=== PATIENT | male | born 2000 | race Caucasian/White ===

== ENCOUNTER 2018-06-06 18:20 | Emergency (ER) | payer SELFPAY ==
[2018-06-06] MEDS ORDERED: FENTANYL CITR 100 MCG/2 ML ONE (19:42)
[2018-06-06] MEDS ORDERED: ONDANSETRON 4 MG/2 ML VIAL ONE (19:43)
[2018-06-06 19:54] LABS: Absolute Lymphocytes (CBC) 0.9 K/uL (0.7-4.9); Absolute Monocytes 1.2 K/uL (0.1-1.3); Absolute Neutrophil 14.3 K/uL (1.8-8.0); Basophils % 0.2 % (0-1.3); Eosinophils % 0.5 % (0-4.4); Hematocrit 46.1 % (39.6-49.0); Lymphocytes % 5.3 % (15.3-44.8); MCH 31.2 pg (27.0-35.0); MCV 91.6 fL (80-100); MPV 8.9 fL (7.6-11.3); Monocytes % 7.1 % (3.3-12.3); RBC Red Blood Cell Count 5.04 M/uL (4.33-5.43)
[2018-06-06 19:57] LABS: Potassium 3.3 mmol/L (3.5-5.1)
[2018-06-06 20:23] LABS: Urine Blood NEGATIVE (NEG); Urine Glucose NEGATIVE (NEG); Urine Protein NEGATIVE (NEG); Urine Specific Gravity <1.005 (1.005-1.030); Urine pH 5.5 (5.0-7.0)
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
[2018-06-06 20:40] LABS: Blood Morphology Comment NOT SEEN (NOT SEEN); Platelet Estimate ADEQ; Urine White Blood Cell Casts OK
[2018-06-06] MEDS ORDERED: HYDROCODONE/APAP 10/325 TAB ONE ×2 (20:48→21:06)
[2018-06-06] MEDS ORDERED: LIDOCAINE 1% MPF 5 ML VIAL ONE (20:50)
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
== END 2018-06-06 21:49 | disposition home or self-care (01) ==
LOC: ER 18:20
PROC: 0JQ10ZZ Repair Face Subcutaneous Tissue and Fascia, Open Approach (ICD-10-PCS; principal; 2018-06-06)
DX: S02.2XXA Fracture of nasal bones, initial encounter for closed fracture (principal); S02.30XA Fracture of orbital floor, unspecified side, initial encounter for closed fracture; S01.111A Laceration without foreign body of right eyelid and periocular area, initial encounter; Y04.2XXA Assault by strike against or bumped into by another person, initial encounter; Y93.89 Activity, other specified; Y92.89 Other specified places as the place of occurrence of the external cause; Z91.02 Food additives allergy status
CPT/HCPCS: 36415; 70450; 70486; 70491; 76377; 80048; 81003; 85025; 96374; 96375; 99285; J2405; J3010; Q9967

== ENCOUNTER 2018-07-24 04:41 | Emergency (ER) | payer SELFPAY ==
[2018-07-24] MEDS ORDERED: DIAZEPAM 5 MG TABLET ONE (05:38)
[2018-07-24] MEDS ORDERED: LEVALBUTEROL 1.25 MG/3 ML NEB ONE (05:40)
--- NOTE | 2018-07-24 06:33 | EDPHYS ---
Physician Documentation [facility] Name: Drake Downey Age: 18 yrs Sex: Male : 2000 Arrival Date: 07/24/2018 Time: 04:45 Bed 8 Private MD: ED Physician Doron Perry HPI: 07/24 05:20 This 18 yrs old Male presents to ER via Ambulatory with complaints of rn Breathing Difficulty. 05:20 The patient has shortness of breath at rest. Onset: The symptoms/episode began/occurred rn just prior to arrival. Duration: The symptoms are intermittent. The patient's shortness of breath is aggravated by nothing, is alleviated by nothing. Severity of symptoms: At their worst the symptoms were moderate in the emergency department the symptoms have improved. The patient has experienced similar episodes in the past. Reports has episodes of breathing difficulty and heart racing, has been going on since last thanksgiving, has had multiple evaluations for it, seen here for it, seen pulmonology and multiple clinic visits. Last recommendation was to get holter monitor but didn't want to pay out of pocket. Reports random episodes, they keep him from working or doing anything. Denies drug use. + smoker. Feels better now without therapy. Told by other doctors could be anxiety. Reports feels congestion, always using vicks, but doesn't take allergy meds, also reports acid reflux but doesn't take anatacids. . Historical: - Allergies: 05:18 Red Dye; jb4 - Home Meds: 05:18 Albuterol Inhl [Active]; Propranolol Oral [Active]; jb4 - PMHx: 05:18 "breathing issues"; jb4 - PSHx: 05:18 None; jb4 - Immunization history:: Adult Immunizations unknown, Flu vaccine is up to date. - Social history:: Smoking status: Patient uses tobacco products, smokes one-half pack cigarettes per day. - Ebola Screening: : No symptoms or risks identified at this time. - Family history:: not pertinent. - Hospitalizations: : No recent hospitalization is reported. ROS: 05:20 Constitutional: Negative for fever, chills, and weight loss, Eyes: Negative for injury, rn pain, redness, and discharge, Neck: Negative for injury, pain, and swelling, Cardiovascular: Negative for chest pain, and edema, Respiratory: Negative for cough, wheezing, and pleuritic chest pain, Abdomen/GI: Negative for abdominal pain, nausea, vomiting, diarrhea, and constipation, MS/Extremity: Negative for injury and deformity, Skin: Negative for injury, rash, and discoloration, Neuro: Negative for headache, weakness, numbness, tingling, and seizure. Exam: 05:20 Constitutional: Thin male, appears anxious, with fine tremors, no acute distress rn Head/Face: Normocephalic, atraumatic. Eyes: Pupils equal round and reactive to light, extra-ocular motions intact. Lids and lashes normal. Conjunctiva and sclera are non-icteric and not injected. Cornea within normal limits. Periorbital areas with no swelling, redness, or edema. ENT: MMM, no stridor, + poor dentition Cardiovascular: Regular rate and rhythm with a normal S1 and S2. No gallops, murmurs, or rubs. Normal PMI, no JVD. No pulse deficits. Respiratory: Lungs have equal breath sounds bilaterally, clear to auscultation and percussion. No rales, rhonchi or wheezes noted. No increased work of breathing, no retractions or nasal flaring. Abdomen/GI: Soft, non-tender, with normal bowel sounds. No distension or tympany. No guarding or rebound. No evidence of tenderness throughout. MS/ Extremity: Pulses equal, no cyanosis. Neurovascular intact. Full, normal range of motion. Equal circumference. Neuro: Awake and alert, GCS 15, oriented to person, place, time, and situation. Cranial nerves II-XII grossly intact. Motor strength 5/5 in all extremities. Sensory grossly intact. Vital Signs: 04:55 BP 148 / 64; Pulse 63; Resp 18; Temp 98.3; Pulse Ox 99% on R/A; Weight 77.11 kg; Height jb4 6 ft. 2 in. (187.96 cm); 06:04 BP 106 / 64; Pulse 65; Resp 18; Pulse Ox 100% on R/A; jb4 06:30 BP 119 / 77; Pulse 76; Resp 16; Pulse Ox 98% on R/A; jb4 04:55 Body Mass Index 21.83 (77.11 kg, 187.96 cm) jb4 MDM: 04:52 Patient medically screened. rn 06:31 Differential diagnosis: Anxiety Reaction Pneumothorax Psychogenic pulmonary edema, rn reactive airway disease. Data reviewed: vital signs, nurses notes, EKG, radiologic studies, plain films, and as a result, I will discharge patient. Counseling: I had a detailed discussion with the patient and/or guardian regarding: the historical points, exam findings, and any diagnostic results supporting the discharge/admit diagnosis, the need for outpatient follow up, to return to the emergency department if symptoms worsen or persist or if there are any questions or concerns that arise at home. Response to treatment: the patient's condition has returned to base line, and as a result, I will discharge patient. Special discussion: I discussed with the patient/guardian in detail that at this point there is no indication for admission to the hospital. It is understood, however, that if the symptoms persist or worsen the patient needs to return immediately for re-evaluation. ED course: Cxr neg, ECG normal. Recommended outpt holter as recommended by others, as well as daily antacid and allergy medication. NOrmal vitals. . 07/24 05:12 Order name: XRAY Chest (1 view) rn 07/24 05:12 Order name: EKG; Complete Time: 05:12 rn 07/24 05:12 Order name: EKG - Nurse/Tech; Complete Time: 05:40 rn Administered Medications: 05:40 Drug: Xopenex 1.25 mg Route: Inhalation; [facility] 06:00 Follow up: Response: No adverse reaction 4 05:40 Drug: Valium 5 mg Route: PO; 4 06:30 Follow up: Response: No adverse reaction [facility] Disposition: 07/24/18 06:33 Discharged to Home. Impression: Palpitations, Shortness of breath. - Condition is Stable. - Discharge Instructions: Allergies, Adult, Holter Monitoring, Palpitations, Shortness of Breath, Heartburn. - Medication Reconciliation Form, Thank You Letter, Antibiotic Education, Prescription Opioid Use form. - Follow up: Private Physician; When: As needed; Reason: Recheck today's complaints, Re-evaluation by your physician. - Problem is an acute exacerbation. - Symptoms have improved. Signatures: Dispatcher [employer] EDDoron Kay MD MD rn Bryson, James, RN RN jb4 Corrections: (The following items were deleted from the chart) 06:59 06:33 07/24/2018 06:33 Discharged to Home. Impression: Palpitations; Shortness of jb4 breath. Condition is Stable. Forms are Medication Reconciliation Form, Thank You Letter, Antibiotic Education, Prescription Opioid Use. Follow up: Private Physician; When: As needed; Reason: Recheck today's complaints, Re-evaluation by your physician. Problem is an acute exacerbation. Symptoms have improved. rn
--- NOTE | 2018-07-24 06:33 | ER ---
Nurse's Notes [facility] Name: Drake Downey Age: 18 yrs Sex: Male : 2000 Arrival Date: 07/24/2018 Time: 04:45 Bed 8 Private MD: Diagnosis: Palpitations;Shortness of breath Presentation: 07/24 05:14 Presenting complaint: Patient states: I was having a hard time breathing, heart was jb4 racing and I was feeling weak. Transition of care: patient was not received from another setting of care. Onset of symptoms was July 24, 2018. Risk Assessment: Do you want to hurt yourself or someone else? Patient reports no desire to harm self or others. Initial Sepsis Screen: Does the patient meet any 2 criteria? No. Patient's initial sepsis screen is negative. Does the patient have a suspected source of infection? No. Patient's initial sepsis screen is negative. Care prior to arrival: None. 05:14 Method Of Arrival: Ambulatory jb4 05:14 Acuity: NATHANAEL 3 jb4 Triage Assessment: 05:18 General: Appears in no apparent distress. uncomfortable, Behavior is calm, cooperative, jb4 appropriate for age. Pain: Denies pain. EENT: No signs and/or symptoms were reported regarding the EENT system. Neuro: Level of Consciousness is awake, alert, obeys commands, Oriented to person, place, time, situation. Cardiovascular: Heart tones S1 S2 present Patient's skin is warm and dry. Rhythm is sinus rhythm. Respiratory: Reports shortness of breath Airway is patent Respiratory effort is even, labored, Respiratory pattern is regular, symmetrical, Breath sounds are clear bilaterally. Onset: The symptoms/episode began/occurred today, the patient has mild shortness of breath. GI: No signs and/or symptoms were reported involving the gastrointestinal system. : No signs and/or symptoms were reported regarding the genitourinary system. Derm: Skin is intact, Skin is pink, warm \\T\\ dry. Musculoskeletal: Circulation, motion, and sensation intact. Historical: - Allergies: 05:18 Red Dye; jb4 - Home Meds: 05:18 Albuterol Inhl [Active]; Propranolol Oral [Active]; jb4 - PMHx: 05:18 "breathing issues"; jb4 - PSHx: 05:18 None; jb4 - Immunization history:: Adult Immunizations unknown, Flu vaccine is up to date. - Social history:: Smoking status: Patient uses tobacco products, smokes one-half pack cigarettes per day. - Ebola Screening: : No symptoms or risks identified at this time. - Family history:: not pertinent. - Hospitalizations: : No recent hospitalization is reported. Screenin:20 Abuse screen: Denies threats or abuse. Nutritional screening: No deficits noted. jb4 Tuberculosis screening: No symptoms or risk factors identified. Fall Risk None identified. Assessment: 05:20 General: See triage assessment.. jb4 06:03 Reassessment: Patient appears in no apparent distress at this time. Patient and/or jb4 family updated on plan of care and expected duration. Pain level reassessed. Patient is alert, oriented x 3, equal unlabored respirations, skin warm/dry/pink. X-ray at the bedside. Vital Signs: 04:55 BP 148 / 64; Pulse 63; Resp 18; Temp 98.3; Pulse Ox 99% on R/A; Weight 77.11 kg; Height jb4 6 ft. 2 in. (187.96 cm); 06:04 BP 106 / 64; Pulse 65; Resp 18; Pulse Ox 100% on R/A; jb4 06:30 BP 119 / 77; Pulse 76; Resp 16; Pulse Ox 98% on R/A; jb4 04:55 Body Mass Index 21.83 (77.11 kg, 187.96 cm) jb4 ED Course: 04:45 Patient arrived in ED. es 04:52 Doron Perry MD is Attending Physician. rn 04:55 Arm band placed on right wrist. jb4 05:14 Neel Astorga, NYDIA is Primary Nurse. jb4 05:17 Triage completed. jb4 05:20 Patient has correct armband on for positive identification. Bed in low position. Call jb4 light in reach. Side rails up X 1. equipment monitor phototypesetting on. Pulse ox on. NIBP on. 06:06 X-ray completed. Portable x-ray completed in exam room. Patient tolerated procedure kw well. 06:07 XRAY Chest (1 view) In Process Unspecified. EDMS 06:30 No provider procedures requiring assistance completed. Patient did not have IV access jb4 during this emergency room visit. Administered Medications: 05:40 Drug: Xopenex 1.25 mg Route: Inhalation; jb4 06:00 Follow up: Response: No adverse reaction jb4 05:40 Drug: Valium 5 mg Route: PO; jb4 06:30 Follow up: Response: No adverse reaction jb4 Outcome: 06:30 Discharged to home ambulatory. jb4 06:30 Condition: stable 06:30 Discharge instructions given to patient, family, Instructed on discharge instructions, follow up and referral plans. Demonstrated understanding of instructions, follow-up care. 06:33 Discharge ordered by . rn 06:59 Patient left the ED. jb4 Signatures: Dispatcher [employer] Yenni Rosas Roman, MD MD rn Whitley, Kimberlee kw Bryson, James, RN RN jb4
--- NOTE | 2018-07-24 08:54 | RAD REPORT ---
EXAM DESCRIPTION: RAD - Chest Single View - 07/24/2018 6:07 am CLINICAL HISTORY: Difficulty breathing, shortness of breath COMPARISON: August 2017 TECHNIQUE: AP portable chest image was obtained [id number] hours . FINDINGS: No peripheral mass, consolidation or failure finding. Interstitial markings are minimally prominent but not clearly different. Heart size is normal. Heart and vasculature are normal. No measu rable pleural effusion and no pneumothorax. No acute bony abnormality seen. No acute aortic findings suspected. IMPRESSION: No acute cardiopulmonary process. No significant interval change.
--- NOTE | 2018-07-24 09:00 | EKG ---
Test Date: 2018-07-24 Test Time: 05:26:01 Portfolio Strategist: LENNY MEASUREMENT RESULTS: Intervals: Rate: 62 NM: 136 QRSD: 96 QT: 396 QTc: 401 [place]: P: 72 NM: 136 QRS: 67 T: 44 INTERPRETIVE STATEMENTS: Normal sinus rhythm Normal ECG Compared to ECG 08/01/2017 03:59:05 No significant changes Electronically Signed On 07-24-18 08:59:26 CDT by Fernando Benoit
== END 2018-07-24 06:59 | disposition home or self-care (01) ==
LOC: ER 04:41
DX: R00.2 Palpitations (principal); F17.210 Nicotine dependence, cigarettes, uncomplicated; Z91.02 Food additives allergy status
CPT/HCPCS: 71045; 93005; 99284

== ENCOUNTER 2025-07-18 16:42 | Emergency (ER) | payer SELFPAY ==
--- OUTSIDE RECORDS SUMMARY | 2025-07-18 16:46 | XMS REPORT | Continuity of Care Document ---
Author Name Unknown Address [address] [facility] [address] [place] [address] [facility] [address] [facility] [address] [place] [address] Care Team Providers Care [place] [facility] Attendant Name Role Phone Irasema Jefferson Primary Care Physician Allergies, Adverse Reactions, Alerts Allergy Name Allergy Type Status Severity Reaction(s) Onset Date Inactive Date Treating Clinician Comments Source [place] - Intraven ous Propensi ty to adverse reaction to drug Active 04-14 00:00: 00 Red Dye Propensi ty to adverse reaction to drug Active 02-21 00:00: 00 Medications Ordered Medication Name Filled Medication Name Start Date Stop Date Current Medication? Ordering Clinician Indication Dosage Frequency Signature (SIG) Comments Components Source omeprazole 40 mg capsule,del ayed release 05-14 00:00: 00 No 1mg amoxicillin 875 mg-potassiu m clavulanate 125 mg tablet 04-21 00:00: 00 No 1mg Dose Unknown 04-21 00:00: 00 No TAKE 1 TABLET BID NEEDED 04-20 00:00: 00 No 600 ketoconazol e 2 % topical cream 04-17 00:00: 00 No 1% escitalopra m 10 mg tablet 04-14 00:00: 00 No 1mg hydroxyzine HCl 25 mg tablet 04-14 00:00: 00 No 12mg omeprazole 20 mg capsule,del ayed release 04-14 00:00: 00 No 1mg Lexapro 20 mg tablet - 00:00: 00 No 15mg propranolol 10 mg tablet 11-02 00:00: 00 No 1mg Lexapro 20 mg tablet 2018-10 00:00: 00 No 15mg propranolol 10 mg tablet 2018-10 00:00: 00 No 1mg propranolol 10 mg tablet 2018-10 00:00: 00 No 1mg Lexapro 20 mg tablet 2018-10 00:00: 00 No 15mg Lexapro 20 mg tablet 2018-10 00:00: 00 No 15mg propranolol 10 mg tablet 2018-10 00:00: 00 No 1mg propranolol 10 mg tablet 2018-10 00:00: 00 No 1mg Lexapro 20 mg tablet 2018-10 0 00:00: 00 No 15mg Lexapro 20 mg tablet 06-14 00:00: 00 No 15mg propranolol 10 mg tablet 06-14 00:00: 00 No 1mg Lexapro 20 mg tablet 7 00:00: 00 No 15mg propranolol 10 mg tablet 04-12 00:00: 00 No 1mg propranolol 10 mg tablet 03-23 00:00: 00 No 1mg Lexapro 20 mg tablet 03-23 00:00: 00 No 15mg propranolol 10 mg tablet 01-25 00:00: 00 No 1mg Lexapro 20 mg tablet 01-25 00:00: 00 No 15mg prednisone 20 mg tablet 01-02 00:00: 00 No 1mg propranolol 10 mg tablet 01-02 00:00: 00 No 1mg Protonix 40 mg tablet,vinicius yed release 01-02 00:00: 00 No 1mg azithromyci n 250 mg tablet 01-02 00:00: 00 No mg promethazin e-DM 6.25 mg-15 mg/5 mL oral syrup 0 402 00:00: 00 No 5mg/5 mL Lexapro 20 mg tablet 0 305 00:00: 00 No 15mg propranolol 10 mg tablet 0 22 00:00: 00 No 1mg Lexapro 20 mg tablet 0 1- 00:00: 00 No 15mg Lexapro 20 mg tablet 2017-10 00:00: 00 No 1mg hydroxyzine HCl 50 mg tablet 2017-10 00:00: 00 No 1mg trazodone 50 mg tablet 2017-10 00:00: 00 No 5mg Lexapro 10 mg tablet 2017-10 00:00: 00 No 1mg hydroxyzine HCl 50 mg tablet 2017-10 00:00: 00 No 1mg trazodone 50 mg tablet 2017-10 00:00: 00 No 1mg Protonix 40 mg tablet,vinicius yed release 2017-10 00:00: 00 No 1mg trazodone 50 mg tablet 2017-10 00:00: 00 No 1mg Lexapro 10 mg tablet 2017-10 00:00: 00 No 1mg hydroxyzine HCl 50 mg tablet 2017-10 00:00: 00 No 1mg Flovent HFA 110 mcg/actuati on aerosol inhaler 06-27 00:00: 00 No 1mcg/ac tuation propranolol 10 mg tablet 06-27 00:00: 00 No 1mg propranolol 10 mg tablet 2016-10 00:00: 00 No 1mg Vital Signs Vital Name Observation Time Observation Value Comments S ource BP Systolic 2022-04-21 19:20:00 BP Diastolic 2022-04-21 19:20:00 Weight Measured 2022-04-21 19:20:00 240.00 pounds Height Measured 2022-04-21 19:20:00 74.00 inches Body Temperature 2022-04-21 19:20:00 Heart Rate 2022-04-21 19:20:00 Respiratory Rate 2022-04-21 19:20:00 BP Systolic 2022-04-17 15:54:00 119 mm[Hg] BP Diastolic 2022-04-17 15:54:00 77 mm[Hg] Weight Measured 2022-04-17 15:54:00 240.80 pounds Height Measured 2022-04-17 15:54:00 74.00 inches Body Temperature 2022-04-17 15:54:00 98.10 degrees Heart Rate 2022-04-17 15:54:00 90.00 /min Respiratory Rate 2022-04-17 15:54:00 BP Systolic 2019-09-28 15:39:00 130 mm[Hg] BP Diastolic 2019-09-28 15:39:00 74 mm[Hg] Weight Measured 2019-09-28 15:39:00 192.60 pounds Height Measured 2019-09-28 15:39:00 74.00 inches Body Temperature 2019-09-28 15:39:00 98.30 degrees Heart Rate 2019-09-28 15:39:00 63.00 /min Respiratory Rate 2019-09-28 15:39:00 BP Systolic 2019-08-21 14:37:00 144 mm[Hg] BP Diastolic 2019-08-21 14:37:00 78 mm[Hg] Weight Measured 2019-08-21 14:37:00 188.00 pounds Height Measured 2019-08-21 14:37:00 74.00 inches Body Temperature 2019-08-21 14:37:00 98.60 degrees Heart Rate 2019-08-21 14:37:00 80.00 /min Respiratory Rate 2019-08-21 14:37:00 BP Systolic 2019-01-23 13:09:00 129 mm[Hg] BP Diastolic 2019-01-23 13:09:00 75 mm[Hg] Weight Measured 2019-01-23 13:09:00 172.80 pounds Height Measured 2019-01-23 13:09:00 74.00 inches Body Temperature 2019-01-23 13:09:00 98.00 degrees Heart Rate 2019-01-23 13:09:00 79.00 /min Respiratory Rate 2019-01-23 13:09:00 18.00 /min BP Systolic 2019-01-02 16:37:00 124 mm[Hg] BP Diastolic 2019-01-02 16:37:00 69 mm[Hg] Weight Measured 2019-01-02 16:37:00 175.60 pounds Height Measured 2019-01-02 16:37:00 74.00 inches Body Temperature 2019-01-02 16:37:00 98.10 degrees Heart Rate 2019-01-02 16:37:00 68.00 /min Respiratory Rate 2019-01-02 16:37:00 18.00 /min BP Systolic 2018-12-05 10:51:00 114 mm[Hg] BP Diastolic 2018-12-05 10:51:00 66 mm[Hg] Weight Measured 2018-12-05 10:51:00 180.00 pounds Height Measured 2018-12-05 10:51:00 74.00 inches Body Temperature 2018-12-05 10:51:00 97.80 degrees Heart Rate 2018-12-05 10:51:00 84.00 /min Respiratory Rate 2018-12-05 10:51:00 Weight Measured 2018-10-12 16:37:00 172.60 pounds Height Measured 2018-10-12 16:37:00 74.00 inches Body Temperature 2018-10-12 16:37:00 98.20 degrees Heart Rate 2018-10-12 16:37:00 63.00 /min Respiratory Rate 2018-10-12 16:37:00 18.00 /min BP Systolic 2018-10-12 16:37:00 115 mm[Hg] BP Diastolic 2018-10-12 16:37:00 65 mm[Hg] BP Systolic 2018-09-12 14:21:00 112 mm[Hg] BP Diastolic 2018-09-12 14:21:00 74 mm[Hg] Weight Measured 2018-09-12 14:21:00 171.60 pounds Height Measured 2018-09-12 14:21:00 74.00 inches Body Temperature 2018-09-12 14:21:00 97.70 degrees Heart Rate 2018-09-12 14:21:00 76.00 /min Respiratory Rate 2018-09-12 14:21:00 17.00 /min BP Systolic 2018-07-27 12:41:00 112 mm[Hg] BP Diastolic 2018-07-27 12:41:00 72 mm[Hg] Weight Measured 2018-07-27 12:41:00 169.00 pounds Height Measured 2018-07-27 12:41:00 74.00 inches Body Temperature 2018-07-27 12:41:00 97.90 degrees Heart Rate 2018-07-27 12:41:00 73.00 /min Respiratory Rate 2018-07-27 12:41:00 18.00 /min BP Systolic 2018-07-24 15:54:00 114 mm[Hg] BP Diastolic 2018-07-24 15:54:00 67 mm[Hg] Weight Measured 2018-07-24 15:54:00 167.40 pounds Height Measured 2018-07-24 15:54:00 74.00 inches Body Temperature 2018-07-24 15:54:00 98.30 degrees Heart Rate 2018-07-24 15:54:00 62.00 /min Respiratory Rate 2018-07-24 15:54:00 Plan of Care Planned Activity Planned Date Details Comments Source Goal Plan of Care Note [code = 31997-0] Goal Plan of Care Note [code = 63003-7] Goal Plan of Care Note [code = 99393-7] Goal Plan of Care Note [code = 07535-1] Goal Plan of Care Note [code = 96109-1] Goal Plan of Care Note [code = 77508-6] Goal Plan of Care Note [code = 00484-5] Goal Plan of Care Note [code = 01193-4] Goal Plan of Care Note [code = 01180-6] Goal Plan of Care Note [code = 49220-7] Goal Plan of Care Note [code = 20471-6] Goal Plan of Care Note [code = 81193-1] Goal Plan of Care Note [code = 70607-3] Goal Plan of Care Note [code = 32641-7] Goal Plan of Care Note [code = 08232-5] Goal Plan of Care Note [code = 00707-8] Goal Plan of Care Note [code = 49383-5] Goal Plan of Care Note [code = 07011-2] Goal Plan of Care Note [code = 22829-3] Goal Plan of Care Note [code = 88009-1] Goal Plan of Care Note [code = 52764-0] Goal Plan of Care Note [code = 76837-7] Goal Plan of Care Note [code = 96390-2] Goal Plan of Care Note [code = 42208-6] Goal Plan of Care Note [code = 36277-9] Goal Plan of Care Note [code = 50523-0] Goal Plan of Care Note [code = 47539-3] Goal Plan of Care Note [code = 06028-7] Goal Plan of Care Note [code = 53249-1] Goal Plan of Care Note [code = 43263-3] Goal Plan of Care Note [code = 39888-6] Goal Plan of Care Note [code = 41854-2] Goal Plan of Care Note [code = 22825-1] Goal Plan of Care Note [code = 95968-6] Goal Plan of Care Note [code = 54573-7] Encounters Start Date/Time End Date/Time Encounter Type Admission Type Attending Clinicians Care Facility Care Department Encounter ID Source 2023-10-05 09:14:50 2023-10-05 09:14:50 Outpatient [facility] [id number] 2023-07-06 09:33:19 2023-07-06 09:33:19 Outpatient [facility] [id number] 2022-05-14 00:00:00 2022-05-14 00:00:00 Outpatient Visit [id number] 2022-04-17 00:00:00 2022-04-17 00:00:00 Outpatient Visit [id number] Results Test Description Test Time Test Comments Results Result Co mments Source HEMOGLOBIN [id number] 00:00:00* Test Item Value Reference Range Interpretation Comme nts HEMOGLOBIN A1c (test code = 70361) 5.3 % CBC W/AUTO [id number] 00:00:00* Test Item Value Reference Range Interpretation Comme nts WBC (test code = 1001) 6.2 K/UL RBC (test code = 1002) 5.28 M/UL HEMOGLOBIN (test code = 1003) 16.1 G/DL HEMATOCRIT (test code = 1004) 46.2 % MCV (test code = 1005) 87.5 fL MCH (test code = 1006) 30.5 PG MCHC (test code = 1007) 34.8 G/DL RDW (test code = 1038) 12.7 % NEUTROPHILS (test code = 1008) 52.2 % LYMPHOCYTES (test code = 1010) 35.8 % MONOCYTES (test code = 1011) 5.6 % EOSINOPHILS (test code = 1012) 5.3 % BASOPHILS (test code = 1013) 0.8 % IMMATURE GRANULOCYTES (test code = 1036) 0.3 % NUCLEATED RBCS (test code = 1065) 0.0 /100WBC'S PLATELET COUNT (test code = 1015) 252 K/UL ABSOLUTE NEUTROPHILS (test c ode = 1066) 3.25 K/UL ABSOLUTE LYMPHOCYTES (test c ode = 1067) 2.23 K/UL ABSOLUTE MONOCYTES (test cod e = 1068) 0.35 K/UL ABSOLUTE EOSINOPHILS (test c ode = 1040) 0.33 K/UL ABSOLUTE BASOPHILS (test cod e = 1069) 0.05 K/UL ABS IMMATURE GRANULOCYTES (t est code = 1020) 0.02 K/UL ABS NUCLEATED RBCS (test cod e = 85382) 0.00 K/UL COMPREHENSIVE METABOLIC [id number] 00:00:00* Test Item Value Reference Range Interpretation Comme nts GLUCOSE (test code = 2217) 73 MG/DL BUN (test code = 2208) 9 MG/DL CREATININE (test code = 2214) 0.88 MG/DL eGFR AMER. (test cod e = 48380) 143 ML/MIN/1.73 eGFR NON- AMER. (test code = 70337) 124 ML/MIN/1.73 CALC BUN/CREAT (test code = 2235) 10 RATIO SODIUM (test code = 2231) 141 MEQ/L POTASSIUM (test code = 2228) 4.0 MEQ/L CHLORIDE (test code = 2215) 100 MEQ/L CARBON DIOXIDE (test code = 2206) 29 MEQ/L CALCIUM (test code = 2209) 9.7 MG/DL PROTEIN, TOTAL (test code = 2229) 7.2 G/DL ALBUMIN (test code = 2201) 4.6 G/DL CALC GLOBULIN (test code = 2240) 2.6 G/DL CALC A/G RATIO (test code = 2234) 1.8 RATIO BILIRUBIN, TOTAL (test code = 2207) 0.2 MG/DL ALKALINE PHOSPHATASE (test code = 2204) 97 U/L AST (test code = 2218) 21 U/L ALT (test code = 2219) 27 U/L COMPREHENSIVE METABOLIC [id number] 00:00:00* Test Item Value Reference Range Interpretation Comme nts GLUCOSE (test code = 2217) 73 MG/DL BUN (test code = 2208) 9 MG/DL CREATININE (test code = 2214) 0.88 MG/DL eGFR AMER. (test cod e = 60237) 143 ML/MIN/1.73 eGFR NON- AMER. (test code = 35073) 124 ML/MIN/1.73 CALC BUN/CREAT (test code = 2235) 10 RATIO SODIUM (test code = 2231) 141 MEQ/L POTASSIUM (test code = 2228) 4.0 MEQ/L CHLORIDE (test code = 2215) 100 MEQ/L CARBON DIOXIDE (test code = 2206) 29 MEQ/L CALCIUM (test code = 2209) 9.7 MG/DL PROTEIN, TOTAL (test code = 2229) 7.2 G/DL ALBUMIN (test code = 2201) 4.6 G/DL CALC GLOBULIN (test code = 2240) 2.6 G/DL CALC A/G RATIO (test code = 2234) 1.8 RATIO BILIRUBIN, TOTAL (test code = 2207) 0.2 MG/DL ALKALINE PHOSPHATASE (test code = 2204) 97 U/L AST (test code = 2218) 21 U/L ALT (test code = 2219) 27 U/L DRUG SCREEN, [id number] 00:00:00* Test Item Value Reference Range Interpretation Comme nts AMPHETAMINES (test code = 46416) Negative BARBITURATES (test code = 93476) Negative BENZODIAZEPINES (test code = 12190) Negative COCAINE METABOLITE (test cod e = 17771) Negative METHADONE (test code = 98686) Negative OPIATES (test code = 458397) Negative PHENCYCLIDINE (test code = 903129) Negative PROPOXYPHENE (test code = 662020) Negative THC (CANNABIS) (test code = 699694) Negative ETHANOL (test code = 744551) Negative DRUG SCREEN, [id number] 00:00:00* Test Item Value Reference Range Interpretation Comme nts AMPHETAMINES (test code = 44552) Negative BARBITURATES (test code = 35809) Negative BENZODIAZEPINES (test code = 48349) Negative COCAINE METABOLITE (test cod e = 77484) Negative METHADONE (test code = 58635) Negative OPIATES (test code = 545197) Negative PHENCYCLIDINE (test code = 586706) Negative PROPOXYPHENE (test code = 132448) Negative THC (CANNABIS) (test code = 880172) Negative ETHANOL (test code = 117106) Negative CBC W/AUTO [id number] 00:00:00* Test Item Value Reference Range Interpretation Comme nts WBC (test code = 1001) 5.9 K/UL RBC (test code = 1002) 5.36 M/UL HEMOGLOBIN (test code = 1003) 16.4 G/DL HEMATOCRIT (test code = 1004) 47.6 % MCV (test code = 1005) 88.8 fL MCH (test code = 1006) 30.6 PG MCHC (test code = 1007) 34.5 G/DL RDW (test code = 1038) 12.4 % NEUTROPHILS (test code = 1008) 53.6 % LYMPHOCYTES (test code = 1010) 32.0 % MONOCYTES (test code = 1011) 8.3 % EOSINOPHILS (test code = 1012) 4.9 % BASOPHILS (test code = 1013) 1.2 % PLATELET COUNT (test code = 1015) 280 K/UL COMPREHENSIVE METABOLIC [id number] 00:00:00* Test Item Value Reference Range Interpretation Comme nts GLUCOSE (test code = 2217) 91 MG/DL BUN (test code = 2208) 8 MG/DL CREATININE (test code = 2214) 0.85 MG/DL eGFR AMER. (test cod e = 11793) 145 ML/MIN/1.73 eGFR NON- AMER. (test code = 95444) 125 ML/MIN/1.73 CALC BUN/CREAT (test code = 2235) 9 RATIO SODIUM (test code = 2231) 143 MEQ/L POTASSIUM (test code = 2228) 4.3 MEQ/L CHLORIDE (test code = 2215) 99 MEQ/L CARBON DIOXIDE (test code = 2206) 29 MEQ/L CALCIUM (test code = 2209) 10.1 MG/DL PROTEIN, TOTAL (test code = 2229) 7.9 G/DL ALBUMIN (test code = 2201) 5.0 G/DL CALC GLOBULIN (test code = 2240) 2.9 G/DL CALC A/G RATIO (test code = 2234) 1.7 RATIO BILIRUBIN, TOTAL (test code = 2207) 0.4 MG/DL ALKALINE PHOSPHATASE (test code = 2204) 110 U/L AST (test code = 2218) 43 U/L ALT (test code = 2219) 64 U/L LIPID [id number] 00:00:00* Test Item Value Reference Range Interpretation Comme nts CHOLESTEROL (test code = 2210) 130 MG/DL TRIGLYCERIDES (test code = 2232) 56 MG/DL HDL CHOLESTEROL (test code = 2220) 34 MG/DL CALC LDL CHOL (test code = 2237) 85 MG/DL RISK RATIO LDL/HDL (test cod e = 2238) 2.49 RATIO [id number] 00:00:00* Test Item Value Reference Range Interpretation Comme nts TSH, THIRD GENERATION (test code = 2821) 2.300 UIU/ML CBC W/AUTO [id number] 00:00:00* Test Item Value Reference Range Interpretation Comme nts WBC (test code = 1001) 5.9 K/UL RBC (test code = 1002) 5.36 M/UL HEMOGLOBIN (test code = 1003) 16.4 G/DL HEMATOCRIT (test code = 1004) 47.6 % MCV (test code = 1005) 88.8 fL MCH (test code = 1006) 30.6 PG MCHC (test code = 1007) 34.5 G/DL RDW (test code = 1038) 12.4 % NEUTROPHILS (test code = 1008) 53.6 % LYMPHOCYTES (test code = 1010) 32.0 % MONOCYTES (test code = 1011) 8.3 % EOSINOPHILS (test code = 1012) 4.9 % BASOPHILS (test code = 1013) 1.2 % PLATELET COUNT (test code = 1015) 280 K/UL COMPREHENSIVE METABOLIC [id number] 00:00:00* Test Item Value Reference Range Interpretation Comme nts GLUCOSE (test code = 2217) 91 MG/DL BUN (test code = 2208) 8 MG/DL CREATININE (test code = 2214) 0.85 MG/DL eGFR AMER. (test cod e = 45296) 145 ML/MIN/1.73 eGFR NON- AMER. (test code = 27848) 125 ML/MIN/1.73 CALC BUN/CREAT (test code = 2235) 9 RATIO SODIUM (test code = 2231) 143 MEQ/L POTASSIUM (test code = 2228) 4.3 MEQ/L CHLORIDE (test code = 2215) 99 MEQ/L CARBON DIOXIDE (test code = 2206) 29 MEQ/L CALCIUM (test code = 2209) 10.1 MG/DL PROTEIN, TOTAL (test code = 2229) 7.9 G/DL ALBUMIN (test code = 2201) 5.0 G/DL CALC GLOBULIN (test code = 2240) 2.9 G/DL CALC A/G RATIO (test code = 2234) 1.7 RATIO BILIRUBIN, TOTAL (test code = 2207) 0.4 MG/DL ALKALINE PHOSPHATASE (test code = 2204) 110 U/L AST (test code = 2218) 43 U/L ALT (test code = 2219) 64 U/L LIPID [id number] 00:00:00* Test Item Value Reference Range Interpretation Comme nts CHOLESTEROL (test code = 2210) 130 MG/DL TRIGLYCERIDES (test code = 2232) 56 MG/DL HDL CHOLESTEROL (test code = 2220) 34 MG/DL CALC LDL CHOL (test code = 2237) 85 MG/DL RISK RATIO LDL/HDL (test cod e = 2238) 2.49 RATIO [id number] 00:00:00* Test Item Value Reference Range Interpretation Comme nts TSH, THIRD GENERATION (test code = 2821) 2.300 UIU/ML
[2025-07-18] MEDS ORDERED: TDAP (DIPHTH,PERTUSS(ACELL),TET VAC) 0.5 ML VIAL IMVAC ONE (17:06)
[2025-07-18] MEDS ORDERED: LIDOCAINE 1% 20 ML MDV ONE (17:06)
[2025-07-18] MEDS ORDERED: DOXYCYCLINE 100 MG CAP PO ONE (17:06)
--- NOTE | 2025-07-18 17:43 | EDPHYS ---
Physician Documentation [facility] Name: Drake Downey Age: 25 yrs Sex: Male : 2000 Arrival Date: 07/18/2025 Time: 16:42 Bed 8 Private MD: ED Physician Dima Franklin HPI: 07/18 20:54 This 25 yrs old Male presents to ER via Ambulatory with complaints of Abscess dr5 - right leg. 20:54 The patient presents with an abscess of the back of right leg. Onset: The dr5 symptoms/episode began/occurred 1.5 week(s) ago. Patient is a 25-year-old male with no past medical history coming in for abscess to the right posterior leg that started a week and a half ago. Patient states that on his way here the abscess popped and drained. Patient denies fever,. Historical: - Allergies: 17:10 Red Dye; kb4 - Immunization history:: Adult Immunizations unknown. - Infectious Disease History:: Denies. - Social history:: Smoking status: Patient reports the use of cigarette tobacco products, Reported history of juuling and/or vaping. ROS: 20:54 Constitutional: as per hpi dr5 Exam: 20:54 Constitutional: This is a well developed, well nourished patient who is awake, alert, dr5 and in no acute distress. Head/Face: Normocephalic, atraumatic. Eyes: Pupils equal round and reactive to light, extra-ocular motions intact. Lids and lashes normal. Conjunctiva and sclera are non-icteric and not injected. Cornea within normal limits. Periorbital areas with no swelling, redness, or edema. Neck: Trachea midline, no thyromegaly or masses palpated, and no cervical lymphadenopathy. Supple, full range of motion without nuchal rigidity, or vertebral point tenderness. No Meningismus. Chest/axilla: Normal chest wall appearance and motion. Nontender with no deformity. No lesions are appreciated. Cardiovascular: Regular rate and rhythm with a normal S1 and S2. Normal PMI, no JVD. No pulse deficits. Respiratory: Lungs have equal breath sounds bilaterally, clear to auscultation. No rales, rhonchi or wheezes noted. No increased work of breathing, no retractions or nasal flaring. Back: No spinal tenderness. No costovertebral tenderness. Full range of motion. MS/ Extremity: Pulses equal, no cyanosis. Neurovascular intact. Full, normal range of motion. Neuro: Awake and alert, GCS 15, oriented to person, place, time, and situation. Cranial nerves II-XII grossly intact. Motor strength 5/5 in all extremities. Sensory grossly intact. Cerebellar exam normal. Normal gait. 20:54 Skin: abscess, that is moderate sized, of the back of right leg, with fluctuance, with induration, Vital Signs: 17:08 BP 163 / 78; Pulse 71; Resp 18; Temp 98.3; Pulse Ox 99% ; Weight 123.83 kg; Height 6 kb4 ft. 2 in. ; 17:08 Body Mass Index 35.05 (123.83 kg, 187.96 cm) kb4 Procedures: 20:54 I \\T\\ D: Incision and drainage was performed for an abscess of the right back of right dr5 leg Prepped with alcohol, Anesthetized with 2 ml's 1% Lidocaine. Incised with #10 blade. Drained moderate amount purulent fluid. bloody fluid. Dressing: non-Adherent dressing, the patient tolerated the procedure well. MDM: 16:47 Medical Screening Exam initiated dr5 20:54 Differential diagnosis: abscess, allergic reaction, cellulitis, insect bite. Data dr5 reviewed: vital signs, nurses notes. Consideration of Admission/Observation Escalation of care including admission/observation considered. Considered admission if patient found to have fever.. Test considered but Not performed: Ultrasound Ultrasound considered but not completed due to patient having subcutaneous abscess. Historians other than the Patient: Spouse/Significant Other: Spouse. Care significantly affected by the following Social Determinants of Health: Poor access to healthcare and/or lack of insurance, Poor access to transportation, Problems related to employment. Counseling: I had a detailed discussion with the patient and/or guardian regarding the historical points, exam findings, and any diagnostic results supporting the discharge/admit diagnosis, the presence of at least one elevated blood pressure reading (>120/80) during this emergency department visit, the need for outpatient follow up, for definitive care, a family practitioner, to return to the emergency department if symptoms worsen or persist or if there are any questions or concerns that arise at home. Medication response: Doxycycline, and lidocaine. Response to treatment: the patient's symptoms have resolved after treatment, the patient's condition has returned to base line, the patient is now symptom free. Special discussion: I discussed with the patient/guardian in detail that at this point there is no indication for admission to the hospital. It is understood, however, that if the symptoms persist or worsen the patient needs to return immediately for re-evaluation. Based on the history and exam findings, there is no indication for further emergent testing or inpatient evaluation. I discussed with the patient/guardian the need to see the primary care provider for further evaluation of the symptoms. ED course: I\\T\\D completed with purulent drainage. Patient placed on doxycycline. Tetanus updated in the ER. recommended alternate Tylenol and Motrin as needed for pain. All question answered. Strict ER precautions given.. 07/18 16:57 Order name: Incision \\T\\ Drainage Setup; Complete Time: 17:14 dr5 Administered Medications: 17:13 Drug: Doxycycline PO 100 mg PO once Route: PO; ar8 17:14 Drug: Lidocaine Infiltration (1 %) 20 ml 20 ml Infiltration once; to bedside {Note: ar8 Administered by provider during I\\T\\D. .} Volume: 20 ml; Route: Infiltration; 17:14 Drug: Boostrix Tdap IM 0.5 ml IM once; as a single dose Route: IM; Site: left deltoid; ar8 Disposition Summary: 07/18/25 17:43 Discharge Ordered Notes: Location: Home dr5 Condition: Stable dr5 Diagnosis - Cutaneous abscess of right lower limb dr5 Followup: dr5 - With: Emergency Department - When: As needed - Reason: Worsening of condition Followup: dr5 - With: Private Physician - When: 1 - 2 days - Reason: Recheck today's complaints, Continuance of care, Re-evaluation by your physician Discharge Instructions: - Discharge Summary Sheet dr5 - Skin Abscess dr5 - Incision and Drainage dr5 Forms: - Medication Reconciliation Form dr5 - Antibiotic Education dr5 - Patient Portal Instructions dr5 - Leadership Thank You Letter dr5 Prescriptions: - Doxycycline Hyclate 100 mg Oral Tablet - take 1 tablet ORAL route every 12 hours; 20 tablet; Refills: 0, Product dr5 Selection Permitted Addendum: 07/20/2025 07:31 Co-signature as Attending Physician, Dima Franklin MD I agree with the assessment and c batista plan of care. Signatures: Dima Franklin MD MD cha Rhodes, Dustin, BELL PERSON-C BELL PERSON-Cdr5 Madhuri Perez RN RN kb4 Sixto Christianson, NYDIA RN ar8 Corrections: (The following items were deleted from the chart) 07/18 17:11 17:10 PMHx: "breathing issues"; kb4 kb4
--- NOTE | 2025-07-18 17:43 | ER ---
Nurse's Notes [facility] Name: Drake Downey Age: 25 yrs Sex: Male : 2000 Arrival Date: 07/18/2025 Time: 16:42 Bed 8 Private MD: Diagnosis: Cutaneous abscess of right lower limb Presentation: 07/18 17:08 Chief complaint: Patient states: c/o abscess to posterior right thigh. Coronavirus kb4 screen: At this time, unable to obtain information related to travel outside the [place] Ebola Screen: No symptoms or risks identified at this time. Initial Sepsis Screen: Does the patient meet any 2 criteria? No. Patient's initial sepsis screen is negative. Does the patient have a suspected source of infection? No. Patient's initial sepsis screen is negative. Risk Assessment: Do you want to hurt yourself or someone else? Patient reports no desire to harm self or others. Onset of symptoms was July 15, 2025. 17:08 Method Of Arrival: Ambulatory kb4 17:08 Acuity: NATHANAEL 3 kb4 Triage Assessment: 17:10 General: Appears in no apparent distress. uncomfortable, Behavior is calm, cooperative. kb4 Pain: Complains of pain in back of right leg. Historical: - Allergies: 17:10 Red Dye; kb4 - Immunization history:: Adult Immunizations unknown. - Infectious Disease History:: Denies. - Social history:: Smoking status: Patient reports the use of cigarette tobacco products, Reported history of juuling and/or vaping. Screenin:[address] [facility] ED Fall Risk Assessment (Adult) History of falling in the last 3 months, ar8 including since admission No falls in past 3 months (0 pts) Confusion or Disorientation No (0 pts) Intoxicated or Sedated No (0 pts) Impaired Gait No (0 pts) Mobility Assist Device Used No (0 pt) Altered Elimination No (0 pt) Score/Fall Risk Level 0 - 2 = Low Risk Oriented to surroundings, Maintained a safe environment. Abuse screen: Denies threats or abuse. Nutritional screening: No deficits noted. Tuberculosis screening: No symptoms or risk factors identified. Assessment: 17:14 General: Appears in no apparent distress. Behavior is calm, cooperative. Neuro: Level ar8 of Consciousness is awake, alert, obeys commands, Oriented to person, place, time, situation. Cardiovascular: Patient's skin is warm and dry. Respiratory: Airway is patent Respiratory effort is even, unlabored, Respiratory pattern is regular, symmetrical. GI: No signs and/or symptoms were reported involving the gastrointestinal system. : No signs and/or symptoms were reported regarding the genitourinary system. Derm: Abscess located on lateral aspect of right thigh is golf ball sized. Musculoskeletal: No signs and/or symptoms reported regarding the musculoskeletal system. Vital Signs: 17:08 BP 163 / 78; Pulse 71; Resp 18; Temp 98.3; Pulse Ox 99% ; Weight 123.83 kg; Height 6 kb4 ft. 2 in. ; 17:08 Body Mass Index 35.05 (123.83 kg, 187.96 cm) kb4 ED Course: 16:46 Patient arrived in ED. im 16:47 Akshat Logan F[facility]-C [facility]. dr5 16:47 Dima Franklin MD is Attending Physician. dr5 17:03 Sixto Christianson, NYDIA is Primary Nurse. ar8 17:10 Triage completed. kb4 17:14 Placed in gown. Bed in low position. Side rails up X 1. Provided Education on: plan of ar8 care. 17:14 Arm band placed on right wrist. jp5 17:14 No provider procedures requiring assistance completed. ar8 17:59 IV discontinued, intact, bleeding controlled, No redness/swelling at site. Pressure jp5 dressing applied. Administered Medications: 17:13 Drug: Doxycycline PO 100 mg PO once Route: PO; ar8 17:14 Drug: Lidocaine Infiltration (1 %) 20 ml 20 ml Infiltration once; to bedside {Note: ar8 Administered by provider during I\\T\\D. .} Volume: 20 ml; Route: Infiltration; 17:14 Drug: Boostrix Tdap IM 0.5 ml IM once; as a single dose Route: IM; Site: left deltoid; ar8 Medication: 17:14 VIS not applicable for this client. ar8 Outcome: 17:43 Discharge ordered by . dr5 17:59 Discharged to home ambulatory, with family, jp5 17:59 Condition: stable 17:59 Discharge instructions given to patient, family, Instructed on discharge instructions, follow up and referral plans. medication usage, Demonstrated understanding of instructions, follow-up care, medications, Prescriptions given X 1, 18:00 Patient left the ED. jp5 Signatures: Rufina Kerns Jailene, RN RN jp5 Akshat Logan, GAS METER READER-C GAS METER READER-Cdr5 Madhuri Perez RN RN kb4 Sixto Christianson RN RN ar8 Corrections: (The following items were deleted from the chart) 17:11 17:10 PMHx: "breathing issues"; kb4 kb4
[2025-07-18 19:27] VITALS: BP 163/78; TEMP 98.3; O2SAT 99
== END 2025-07-18 18:00 | disposition home or self-care (01) ==
LOC: ER 16:42
PROC: 0H9KXZZ Drainage of Right Lower Leg Skin, External Approach (ICD-10-PCS; principal; 2025-07-18)
DX: L02.415 Cutaneous abscess of right lower limb (principal)
CPT/HCPCS: 90715; 96372; 99284; J2003